=== PATIENT | female | born 1960 | race African-American/Black ===

== ENCOUNTER 2019-02-08 16:43 | Inpatient (IN) | payer MEDICAID ==
[~2019-02-08] VITALS: Ht 167.6 cm; Wt 52.6 kg
[~2019-02-08 16:43] MED LIST: AMLO2.5T45 PO; ATOR10TA PO; CARI350T27 *; LORA10TA7 PO; LOSA100T32 PO; PANT40TA4 PO; POTA20TA82 PO; PRAV20TA57 PO; [UNRECOGNIZED DRUG - CODE] PO
[2019-02-08] MEDS ORDERED: SODIUM CHLORIDE 0.9% 1000ML BAG (SEPSIS BOLUS) IV ONE (17:15)
[2019-02-08 17:44] LABS: BASOPHILS % 0.2 % (0.0-2.0); EOSINOPHILS % 0.6 % (0.0-5.0); HEMATOCRIT. 29.3 % (36.0-48.0); HEMOGLOBIN. 10.3 g/dL (12.0-16.0); LYMPHOCYTES % 18.3 % (20.0-50.0); MEAN CORPUSCULAR VOLUME 96.3 fL (81.0-99.0); MEAN PLATELET VOLUME 6.8 fl (7.4-10.4); MONOCYTES % 14.5 % (2.0-8.0); NEUTROPHILS % 66.4 % (40.0-76.0); PLATELET 295 x1000/uL (130-400); RED BLOOD CELL COUNT 3.04 mill/uL (4.2-5.4); RED CELL DISTRIBUTION WIDTH 14.1 % (11.6-14.6)
[2019-02-08 17:49] LABS: INR 1.1; PARTIAL THROMBOPLASTIN TIME 26.6 sec (23.4-31.0); PROTHROMBIN TIME 10.9 sec (9.6-11.0)
[2019-02-08 17:50] LABS: CHLORIDE 85 mEq/L (98-107)
[2019-02-08] MEDS ORDERED: KCL 20MEQ/100ML PREMIX 100 ML IV ONE (18:30)
[2019-02-08] MEDS ORDERED: LEVOFLOXACIN 750MG PREMIX 150 ML IV ONE (18:30)
[2019-02-08] MEDS ORDERED: POTASSIUM CHLORIDE 20MEQ TABLET SR PO ONE (18:30)
[2019-02-08] MEDS ORDERED: KCL 20MEQ/100ML PREMIX 100 ML IV NR (19:00)
[2019-02-08 19:11] LABS: CLARITY URINE CLEAR (CLEAR); COLOR URINE YELLOW (YELLOW); KETONES URINE NEGATIVE (NEGATIVE); LEUKOCYTE ESTERASE URINE TRACE (NEGATIVE); NITRITE URINE NEGATIVE (NEGATIVE); OCCULT BLOOD URINE TRACE (NEGATIVE); PROTEIN URINE NEGATIVE (NEGATIVE); SPECIFIC GRAVITY URINE 1.003 (1.005-1.030); UROBILINOGEN URINE 0.2 E.U./dL (0.2-1.0)
[2019-02-08] MEDS ORDERED: MAGNESIUM/ALUMINUM HYDROXIDE/SIMETHICONE 30ML UDC PO PRN (19:15)
[2019-02-08] MEDS ORDERED: IPRATROPIUM/ALBUTEROL 0.5-3(2.5)MG/3ML NEB HHN PRN (19:15)
[2019-02-08] MEDS ORDERED: ONDANSETRON HCL 4MG/2ML INJ IV PRN (19:15)
[2019-02-08] MEDS ORDERED: KETOROLAC 15MG/ML VIAL IV PRN (19:15)
[2019-02-08] MEDS ORDERED: ZOLPIDEM TARTRATE 5MG TABLET PO PRN (19:15)
[2019-02-08] MEDS ORDERED: ACETAMINOPHEN 325MG TABLET PO PRN (19:15)
[2019-02-08] MEDS ORDERED: DOCUSATE SODIUM 100MG CAPSULE PO PRN (19:15)
[2019-02-08] MEDS ORDERED: GUAIFENESIN 200MG/10ML SUGAR FREE UDC PO PRN (19:15)
[2019-02-08] MEDS ORDERED: CLONIDINE 0.1MG TABLET PO PRN (19:15)
[2019-02-08] MEDS ORDERED: NITROGLYCERIN 0.4MG TABLET SL SL PRN (19:15)
[2019-02-08] MEDS ORDERED: LORAZEPAM 0.5MG TABLET PO PRN (19:15)
[2019-02-08] MEDS ORDERED: LEVOFLOXACIN 500MG PREMIX 100 ML IV SCH (19:15)
[2019-02-08] MEDS ORDERED: DEXTROSE 50% WATER 50ML SYRINGE IV PRN (19:15)
[2019-02-08 19:37] LABS: T4 FREE 0.98 ng/dL (0.76-1.46)
[2019-02-08 19:43] LABS: ETHANOL BLOOD < 10 mg/dL
[2019-02-08 19:46] LABS: LDL CHOLESTEROL 78 mg/dL (5-100)
[2019-02-08 19:49] LABS: HDL CHOLESTEROL 63 mg/dL (40-59)
[2019-02-08] MEDS ORDERED: MAGNESIUM 2 G PREMIX 50 ML IV ONE (20:00)
[2019-02-08 20:05] LABS: *AMPHETAMINES SCREEN URINE NEGATIVE (NEGATIVE); *BARBITURATES SCREEN URINE NEGATIVE (NEGATIVE); *BENZODIAZEPINES SCREEN URINE NEGATIVE (NEGATIVE); *COCAINE SCREEN URINE NEGATIVE (NEGATIVE); CANNABINOID URINE SCREEN NEGATIVE (NEGATIVE); METHADONE URINE SCREEN NEGATIVE (NEGATIVE); OPIATES URINE SCREEN NEGATIVE (NEGATIVE); PHENCYCLIDINE URINE SCREEN NEGATIVE (NEGATIVE)
[2019-02-08 20:07] LABS: VITAMIN B12 SERUM 642 pg/mL (211-911)
[2019-02-08 20:11] LABS: FOLIC ACID (FOLATE) SERUM > 20.00 ng/mL (>5.38)
[2019-02-08 21:30] VITALS: BP 123/88
[2019-02-08 22:00] VITALS: BP 135/79
[2019-02-08] MEDS: INSULIN LISPRO 100 UNITS/ML SUBCUT SCH (23:00)
[2019-02-08] MEDS: SODIUM CHLORIDE 0.9% 1,000 ML IV SCH (23:12)
[2019-02-08] MEDS: BLOOD SUGAR DIAGNOSTIC STRIP TEST SCH (23:24)
[2019-02-08] MEDS ORDERED: MAGNESIUM 4 G PREMIX 100 ML IV SCH (23:30)
[2019-02-08] MEDS: ASCORBIC ACID 500 MG TABLET PO SCH (23:58)
[2019-02-09] VITALS (12 sets, daily range): BP systolic 95–151; BP diastolic 54–80
[2019-02-09 00:19] LABS: CREATINE KINASE 279 IU/L (26-192)
[2019-02-09 00:21] LABS: CREATINE KINASE MB FRACTION 2.7 ng/mL (0.5-3.6)
[2019-02-09] MEDS ORDERED: ASPI-1393 PO (02:58)
[2019-02-09] MEDS: BLOOD SUGAR DIAGNOSTIC STRIP TEST SCH ×4 (07:50→21:14)
[2019-02-09] MEDS ORDERED: PNEUMOCOCCAL 23-VAL P-SAC VAC 0.5 ML IM ONE (08:00)
[2019-02-09] MEDS: INSULIN LISPRO 100 UNITS/ML SUBCUT SCH ×4 (08:00→21:00)
[2019-02-09] MEDS: ZINC SULFATE 220 MG ( 50 ) CAPSULE PO SCH (08:48)
[2019-02-09] MEDS: CEFTRIAXONE 1 G PREMIX 50 ML IV SCH (08:48)
[2019-02-09] MEDS: ASCORBIC ACID 500 MG TABLET PO SCH ×2 (08:48→21:58)
[2019-02-09] MEDS: ASPIRIN 325MG EC TABLET PO SCH (08:48)
[2019-02-09 08:53] LABS: HEMATOCRIT. 29.7 % (36.0-48.0); HEMOGLOBIN. 10.2 g/dL (12.0-16.0); MEAN CORPUSCULAR HEMOGLOBIN 33.7 pg (28.0-32.0); MEAN CORPUSCULAR VOLUME 97.7 fL (81.0-99.0); MEAN PLATELET VOLUME 6.7 fl (7.4-10.4); PLATELET 294 x1000/uL (130-400); RED BLOOD CELL COUNT 3.04 mill/uL (4.2-5.4)
[2019-02-09] MEDS ORDERED: CEFTRIAXONE 1 G PREMIX 50 ML IV SCH (09:00)
[2019-02-09] MEDS: ENOXAPARIN 30MG/0.3ML SYR SUBCUT SCH (09:01)
[2019-02-09 09:05] LABS: CHLORIDE 101 mEq/L (98-107)
[2019-02-09 09:17] LABS: CREATINE KINASE 221 IU/L (26-192)
[2019-02-09 09:20] LABS: PLATELET ESTIMATE NORMAL
[2019-02-09] MEDS: SODIUM CHLORIDE 0.9% 1,000 ML IV SCH (12:25)
[2019-02-09] MEDS: THIAMINE HCL 100MG TABLET PO SCH (12:43)
[2019-02-09] MEDS: FOLIC ACID 1MG TABLET PO SCH (12:43)
[2019-02-09] MEDS: MULTIVITAMINS,THER W-MINERALS TABLET PO SCH (12:43)
[2019-02-09] MEDS: LEVOFLOXACIN 250MG PREMIX 50 ML IV SCH (18:23)
[2019-02-10] VITALS (9 sets, daily range): BP systolic 13–146; BP diastolic 45–85
[2019-02-10] MEDS: SODIUM CHLORIDE 0.9% 1,000 ML IV SCH ×2 (06:56→14:29)
[2019-02-10 06:58] LABS: BASOPHILS % 0.7 % (0.0-2.0); HEMATOCRIT. 24.9 % (36.0-48.0); HEMOGLOBIN. 8.7 g/dL (12.0-16.0); MEAN CORPUSCULAR HEMOGLOBIN 34.1 pg (28.0-32.0); MEAN CORPUSCULAR VOLUME 98.2 fL (81.0-99.0); MEAN PLATELET VOLUME 6.9 fl (7.4-10.4); MONOCYTES % 12.5 % (2.0-8.0); NEUTROPHILS % 48.8 % (40.0-76.0); PLATELET 278 x1000/uL (130-400); RED BLOOD CELL COUNT 2.54 mill/uL (4.2-5.4); RED CELL DISTRIBUTION WIDTH 14.3 % (11.6-14.6)
[2019-02-10 07:09] LABS: CHLORIDE 105 mEq/L (98-107)
[2019-02-10] MEDS: INSULIN LISPRO 100 UNITS/ML SUBCUT SCH ×2 (08:00→13:00)
[2019-02-10] MEDS: BLOOD SUGAR DIAGNOSTIC STRIP TEST SCH ×2 (08:14→13:11)
[2019-02-10] MEDS: ZINC SULFATE 220 MG ( 50 ) CAPSULE PO SCH (08:24)
[2019-02-10] MEDS: ASCORBIC ACID 500 MG TABLET PO SCH (08:24)
[2019-02-10] MEDS: ASPIRIN 325MG EC TABLET PO SCH (08:24)
[2019-02-10] MEDS: THIAMINE HCL 100MG TABLET PO SCH (08:24)
[2019-02-10] MEDS: CEFTRIAXONE 1 G PREMIX 50 ML IV SCH (08:24)
[2019-02-10] MEDS: FOLIC ACID 1MG TABLET PO SCH (08:24)
[2019-02-10] MEDS: MULTIVITAMINS,THER W-MINERALS TABLET PO SCH (08:24)
[2019-02-10] MEDS: ENOXAPARIN 30MG/0.3ML SYR SUBCUT SCH (08:25)
[2019-02-10] MEDS ORDERED: MAGNESIUM OXIDE 400MG TABLET PO SCH (10:00)
[2019-02-10] MEDS: LEVOFLOXACIN 250MG PREMIX 50 ML IV SCH (11:31)
[2019-02-10] MEDS ORDERED: FOLI-43 PO (15:33)
[2019-02-10] MEDS ORDERED: MULT-1116 PO (15:33)
[2019-02-10] MEDS ORDERED: THIA100T75 PO (15:35)
[2019-02-10] MEDS ORDERED: THIO100T PO (15:36)
[2019-02-10] MEDS ORDERED: LEVOFLOXACIN 250MG PREMIX 50 ML IV SCH (18:00)
[2019-02-11] MEDS ORDERED: ENOXAPARIN 40MG/0.4ML SYR SUBCUT SCH (09:00)
== END 2019-02-10 16:45 | disposition home or self-care (01) | DRG 720 ==
LOC: ER 16:43 → 5EST 18:49 → EDBEDREQ 19:02 → EDBEDREQTM 19:03 → EDBEDREQ 19:03 → ENRESERV 20:30
PROVIDERS: ADMIT Internal Medicine; ATTEND Internal Medicine
DX: A41.9 Sepsis, unspecified organism (principal); N17.0 Acute kidney failure with tubular necrosis; E83.42 Hypomagnesemia; E87.1 Hypo-osmolality and hyponatremia; N39.0 Urinary tract infection, site not specified; E83.51 Hypocalcemia; E87.6 Hypokalemia; E78.00 Pure hypercholesterolemia, unspecified; F10.21 Alcohol dependence, in remission; I10 Essential (primary) hypertension; F41.9 Anxiety disorder, unspecified
CPT/HCPCS: 36415; 71045; 80061; 80305; 80320; 81003; 82550; 82553; 82607; 82746; 82962; 83036; 83540; 83550; 83605; 83735; 84145; 84439; 84443; 84484; 93005; 93306; 93970; 99291; J0696; J1650; J1956; J3475; J3480; J7030; G0480

== ENCOUNTER 2019-04-05 12:21 | Emergency (ER) | payer MEDICAID ==
[~2019-04-05] VITALS: Ht 165.1 cm; Wt 70.0 kg
[~2019-04-05 12:21] MED LIST changes: +ASPI-1393 PO; +FOLI-43 PO; +MULT-1116 PO; +THIA100T75 PO; +THIO100T PO
[2019-04-05] MEDS ORDERED: LORAZEPAM 2MG/ML CPJ IV STA (13:00)
[2019-04-05] MEDS ORDERED: SODIUM CHLORIDE 0.9% 1,000 ML IV ONE (13:00)
[2019-04-05 13:37] LABS: BASOPHILS % 1.5 % (0.0-2.0); EOSINOPHILS % 0.6 % (0.0-5.0); HEMATOCRIT. 33.6 % (36.0-48.0); HEMOGLOBIN. 11.7 g/dL (12.0-16.0); LYMPHOCYTES % 23.4 % (20.0-50.0); MEAN CORPUSCULAR HEMOGLOBIN 33.5 pg (28.0-32.0); MEAN CORPUSCULAR VOLUME 96.2 fL (81.0-99.0); MEAN PLATELET VOLUME 6.9 fl (7.4-10.4); MONOCYTES % 7.5 % (2.0-8.0); PLATELET 586 x1000/uL (130-400); RED BLOOD CELL COUNT 3.49 mill/uL (4.2-5.4); RED CELL DISTRIBUTION WIDTH 14.4 % (11.6-14.6)
[2019-04-05 13:43] LABS: CHLORIDE 97 mEq/L (98-107)
[2019-04-05 13:45] LABS: PROTHROMBIN TIME 10.2 sec (9.6-11.0)
[2019-04-05 13:47] LABS: ETHANOL BLOOD < 10 mg/dL
[2019-04-05 13:54] LABS: CREATINE KINASE 76 IU/L (26-192)
[2019-04-05] MEDS ORDERED: PIPERACILLIN/TAZ 3.375G PREMIX 50 ML IV ONE (14:15)
[2019-04-05] MEDS ORDERED: SODIUM CHLORIDE 0.9% 1000ML BAG (SEPSIS BOLUS) IV ONE (14:15)
[2019-04-05 15:20] LABS: CLARITY URINE CLEAR (CLEAR); COLOR URINE YELLOW (YELLOW); KETONES URINE NEGATIVE (NEGATIVE); LEUKOCYTE ESTERASE URINE NEGATIVE (NEGATIVE); NITRITE URINE NEGATIVE (NEGATIVE); OCCULT BLOOD URINE 2+ (NEGATIVE); PROTEIN URINE NEGATIVE (NEGATIVE); UROBILINOGEN URINE 0.2 E.U./dL (0.2-1.0)
[2019-04-05 15:40] VITALS: BP 112/71
[2019-04-05 15:56] LABS: METHADONE URINE SCREEN NEGATIVE (NEGATIVE); OPIATES URINE SCREEN NEGATIVE (NEGATIVE); PHENCYCLIDINE URINE SCREEN NEGATIVE (NEGATIVE)
[2019-04-05 15:57] LABS: *AMPHETAMINES SCREEN URINE NEGATIVE (NEGATIVE); *BARBITURATES SCREEN URINE NEGATIVE (NEGATIVE); *BENZODIAZEPINES SCREEN URINE NEGATIVE (NEGATIVE); *COCAINE SCREEN URINE NEGATIVE (NEGATIVE); CANNABINOID URINE SCREEN NEGATIVE (NEGATIVE)
[2019-04-05] MEDS ORDERED: LORAZEPAM 2MG/ML CPJ IV PRN (16:30)
[2019-04-05] MEDS ORDERED: THIAMINE HCL 100MG TABLET PO SCH (16:30)
[2019-04-05] MEDS ORDERED: FOLIC ACID 1MG TABLET PO SCH (16:30)
[2019-04-05] MEDS ORDERED: PIPERACILLIN/TAZOBACTAM 3.375 G in DEXT 5% WATER 100 ML IV SCH (16:30)
[2019-04-05] MEDS ORDERED: MULTIVITAMINS,THER W-MINERALS TABLET PO SCH (16:30)
[2019-04-05] MEDS ORDERED: CHLORDIAZEPOXIDE 25MG CAPSULE PO SCH (22:00)
[2019-04-07] MEDS ORDERED: AMLO10TA80 MT (21:22)
[2019-04-10] MEDS ORDERED: FOLI-43 PO (09:45)
[2019-04-10] MEDS ORDERED: CYAN-50 PO (09:45)
[2019-04-10] MEDS ORDERED: THIA100T72 PO (09:45)
== END 2019-04-05 16:03 | disposition left against medical advice (07) ==
LOC: ER 12:38 → EDBEDREQTM 15:35 → EDBEDREQ 15:35 → ER 16:03 → CANBEDREQ 16:29
DX: R65.20 Severe sepsis without septic shock (principal); G93.41 Metabolic encephalopathy; I10 Essential (primary) hypertension; E78.00 Pure hypercholesterolemia, unspecified; D64.9 Anemia, unspecified; F10.20 Alcohol dependence, uncomplicated; Z79.82 Long term (current) use of aspirin; Z79.899 Other long term (current) drug therapy; Y90.0 Blood alcohol level of less than 20 mg/100 ml
CPT/HCPCS: 36415; 70450; 71045; 80053; 80305; 80320; 81003; 82140; 82550; 83605; 84145; 84484; 85025; 85610; 87040; 87086; 93005; 96361; 96374; 99291; J2060; J7030; G0480

== ENCOUNTER 2019-07-20 12:31 | Inpatient (IN) | payer MEDICAID ==
[~2019-07-20] VITALS: Ht 149.9 cm; Wt 55.3 kg
[~2019-07-20 12:31] MED LIST changes: +ACET-2708 PO; +AMLO10TA80 PO; -AMLO2.5T45 PO; -ASPI-1393 PO; -ATOR10TA PO; -CARI350T27 *; -FOLI-43 PO; -LOSA100T32 PO; +LOSA1TAB40 PO; -MULT-1116 PO; -POTA20TA82 PO; -THIA100T75 PO; -THIO100T PO; +[UNRECOGNIZED DRUG - CODE] PO; -[UNRECOGNIZED DRUG - CODE] PO
[2019-07-20] MEDS ORDERED: SODIUM CHLORIDE 0.9% 1,000 ML IV ONE (13:02)
[2019-07-20] MEDS ORDERED: MORPHINE SULFATE 4 MG/ML CPJ (NOT FOR IM USE) IV STA (13:02)
[2019-07-20] MEDS ORDERED: FAMOTIDINE 20MG/2ML VIAL IV STA (13:02)
[2019-07-20] MEDS ORDERED: ONDANSETRON HCL 4MG/2ML INJ IV STA (13:02)
[2019-07-20 13:15] LABS: CLARITY URINE CLOUDY (CLEAR); COLOR URINE DARK YELLOW (YELLOW); KETONES URINE NEGATIVE (NEGATIVE); LEUKOCYTE ESTERASE URINE TRACE (NEGATIVE); NITRITE URINE NEGATIVE (NEGATIVE); OCCULT BLOOD URINE NEGATIVE (NEGATIVE); PROTEIN URINE 1+ (NEGATIVE); SPECIFIC GRAVITY URINE 1.018 (1.005-1.030); UROBILINOGEN URINE 0.2 E.U./dL (0.2-1.0)
[2019-07-20] MEDS ORDERED: HYDROCODONE/ACETAMINOPHEN 5/325MG TABLET PO ONE (13:30)
[2019-07-20] MEDS ORDERED: ONDANSETRON 4MG ODT PO ONE (13:45)
[2019-07-20 14:08] LABS: CHLORIDE 94 mEq/L (98-107)
[2019-07-20] MEDS ORDERED: SODIUM CHLORIDE 0.9% 1000ML BAG (SEPSIS BOLUS) IV ONE (14:30)
[2019-07-20] MEDS ORDERED: PIPERACILLIN/TAZ 3.375G PREMIX 50 ML IV ONE (14:30)
[2019-07-20 15:48] LABS: BASOPHILS % 0.8 % (0.0-2.0); HEMATOCRIT. 39.4 % (36.0-48.0); HEMOGLOBIN. 13.5 g/dL (12.0-16.0); LYMPHOCYTES % 22.8 % (20.0-50.0); MEAN CORPUSCULAR HEMOGLOBIN 32.3 pg (28.0-32.0); MEAN CORPUSCULAR VOLUME 94.3 fL (81.0-99.0); MEAN PLATELET VOLUME 7.8 fl (7.4-10.4); MONOCYTES % 10.4 % (2.0-8.0); PLATELET 399 x1000/uL (130-400); RED BLOOD CELL COUNT 4.18 mill/uL (4.2-5.4); RED CELL DISTRIBUTION WIDTH 14.3 % (11.6-14.6)
[2019-07-20 16:50] LABS: PROTHROMBIN TIME 11.2 sec (9.6-11.0)
[2019-07-20] MEDS ORDERED: ONDANSETRON HCL 4MG/2ML INJ IV PRN (18:00)
[2019-07-20] MEDS ORDERED: DIPHENHYDRAMINE 50MG/ML VIAL IV PRN (18:00)
[2019-07-20] MEDS ORDERED: IPRATROPIUM/ALBUTEROL 0.5-3(2.5)MG/3ML NEB HHN PRN (18:00)
[2019-07-20] MEDS ORDERED: ACETAMINOPHEN 325MG TABLET PO PRN (18:00)
[2019-07-20] MEDS ORDERED: CLONIDINE 0.1MG TABLET PO PRN (18:00)
[2019-07-20] MEDS ORDERED: IOHEXOL-300 100 ML BOTTLE ONE (18:40)
[2019-07-20] MEDS ORDERED: MORPHINE SULFATE 2 MG/ML CPJ (NOT FOR IM USE) IV PRN (20:42)
[2019-07-20 21:15] VITALS: BP 135/76
[2019-07-20] MEDS: INSULIN LISPRO 100 UNITS/ML SUBCUT SCH (22:22)
[2019-07-20] MEDS ORDERED: DEXTROSE 50% WATER 50ML SYRINGE IV PRN (22:22)
[2019-07-20 22:30] VITALS: BP 135/76
[2019-07-20] MEDS: BLOOD SUGAR DIAGNOSTIC STRIP TEST SCH (22:38)
[2019-07-20] MEDS ORDERED: ASPI-1497 PO (23:00)
[2019-07-21] VITALS: BP 145/70
[2019-07-21 04:00] VITALS: BP 112/67
[2019-07-21] MEDS: INSULIN LISPRO 100 UNITS/ML SUBCUT SCH ×2 (06:00→11:35)
[2019-07-21] MEDS: BLOOD SUGAR DIAGNOSTIC STRIP TEST SCH ×2 (06:00→11:35)
[2019-07-21 08:00] VITALS: BP 110/59
[2019-07-21] MEDS ORDERED: ENOXAPARIN 40MG/0.4ML SYR SUBCUT SCH (09:00)
[2019-07-21 12:00] VITALS: BP 143/51
[2019-07-21 15:54] VITALS: BP_SYST 130; BP_SYST 96; BP_DIAS 50; BP_DIAS 69
[2019-10-28] MEDS ORDERED: RISP1 MT (10:32)
== END 2019-07-21 16:30 | disposition home or self-care (01) | DRG 249 ==
LOC: ER 12:31 → 5WST 17:02 → EDBEDREQ 17:11 → ENRESERV 20:36
PROVIDERS: ADMIT Internal Medicine; ATTEND Internal Medicine
DX: A08.4 Viral intestinal infection, unspecified (principal); E87.2 Acidosis; E78.00 Pure hypercholesterolemia, unspecified; E78.5 Hyperlipidemia, unspecified; E87.6 Hypokalemia; I10 Essential (primary) hypertension; Z87.891 Personal history of nicotine dependence; Z79.899 Other long term (current) drug therapy; Z79.82 Long term (current) use of aspirin
CPT/HCPCS: 36415; 71045; 74177; 76700; 80053; 81003; 82962; 83605; 83735; 84100; 84484; 85025; 93005; 93970; 99291; J1650; J2270; J2405; J2543; J3490; J7030; Q0162; Q9967

== ENCOUNTER 2019-11-05 11:26 | Emergency (ER) | payer MEDICAID ==
[~2019-11-05] VITALS: Ht 167.6 cm; Wt 63.0 kg
[~2019-11-05 11:26] MED LIST changes: +ASPI-1497 PO; +RISP1 MT
[2019-11-05 12:56] LABS: CLARITY URINE CLOUDY (CLEAR); COLOR URINE YELLOW (YELLOW); KETONES URINE TRACE (NEGATIVE); LEUKOCYTE ESTERASE URINE 2+ (NEGATIVE); NITRITE URINE NEGATIVE (NEGATIVE); OCCULT BLOOD URINE NEGATIVE (NEGATIVE); PROTEIN URINE TRACE (NEGATIVE); SPECIFIC GRAVITY URINE 1.017 (1.005-1.030)
[2019-11-05 13:09] LABS: BASOPHILS % 0.8 % (0.0-2.0); EOSINOPHILS % 0.5 % (0.0-5.0); HEMATOCRIT. 31.4 % (36.0-48.0); HEMOGLOBIN. 10.7 g/dL (12.0-16.0); LYMPHOCYTES % 18.4 % (20.0-50.0); MEAN CORPUSCULAR HEMOGLOBIN 33.5 pg (28.0-32.0); MEAN CORPUSCULAR VOLUME 98.6 fL (81.0-99.0); MEAN PLATELET VOLUME 7.3 fl (7.4-10.4); MONOCYTES % 8.7 % (2.0-8.0); NEUTROPHILS % 71.6 % (40.0-76.0); PLATELET 526 x1000/uL (130-400); RED BLOOD CELL COUNT 3.19 mill/uL (4.2-5.4); RED CELL DISTRIBUTION WIDTH 13.7 % (11.6-14.6)
[2019-11-05 13:12] LABS: CHLORIDE 103 mEq/L (98-107)
[2019-11-05 13:18] LABS: *AMPHETAMINES SCREEN URINE NEGATIVE (NEGATIVE)
[2019-11-05 13:19] LABS: *BARBITURATES SCREEN URINE NEGATIVE (NEGATIVE); *BENZODIAZEPINES SCREEN URINE NEGATIVE (NEGATIVE); *COCAINE SCREEN URINE NEGATIVE (NEGATIVE); METHADONE URINE SCREEN NEGATIVE (NEGATIVE); OPIATES URINE SCREEN NEGATIVE (NEGATIVE)
[2019-11-05 13:19] LABS: ETHANOL BLOOD < 10 mg/dL
[2019-11-05 13:20] LABS: CANNABINOID URINE SCREEN NEGATIVE (NEGATIVE); PHENCYCLIDINE URINE SCREEN NEGATIVE (NEGATIVE)
[2019-11-05 15:41] VITALS: BP 112/70
[2019-11-05] MEDS ORDERED: NITROFURANTOIN 100MG M/M CAPSULE PO ONE (18:00)
== END 2019-11-05 18:13 | disposition home or self-care (01) ==
LOC: ER 11:41
DX: F41.9 Anxiety disorder, unspecified (principal); F23 Brief psychotic disorder; N39.0 Urinary tract infection, site not specified; R80.9 Proteinuria, unspecified; R82.4 Acetonuria; R82.71 Bacteriuria; N17.0 Acute kidney failure with tubular necrosis; D64.9 Anemia, unspecified; I10 Essential (primary) hypertension; E78.00 Pure hypercholesterolemia, unspecified; Z79.82 Long term (current) use of aspirin; Z79.899 Other long term (current) drug therapy
CPT/HCPCS: 36415; 80053; 80305; 80320; 81003; 85025; 99283; G0480

== ENCOUNTER 2025-02-01 10:45 | Emergency (ER) | payer OTHER, MEDICARE, MEDICAID ==
[~2025-02-01] VITALS: Ht 149.9 cm; Wt 56.0 kg
[~2025-02-01 10:45] MED LIST changes: -AMLO10TA80 PO; -ASPI-1497 PO; +FOLI-43 PO; -LORA10TA7 PO; -LOSA1TAB40 PO; -PANT40TA4 PO; +PANT40TA51 PO; -PRAV20TA57 PO; -RISP1 MT; +TOPUD PO; -[UNRECOGNIZED DRUG - CODE] PO
[2025-02-01 11:00] VITALS: O2SAT 99
[2025-02-01] MEDS: CYCLOBENZAPRINE 10MG TABLET PO ONE (11:46)
[2025-02-01] MEDS ORDERED: CYCL10TA21 MT (11:53)
[2025-02-01 12:05] VITALS: BP 164/84; PULSE 75; RESP 18; TEMP 36.9; O2SAT 99
== END 2025-02-01 12:05 | disposition home or self-care (01) ==
LOC: ER 10:45
DX: M25.461 Effusion, right knee (principal); E78.00 Pure hypercholesterolemia, unspecified; F20.9 Schizophrenia, unspecified; I10 Essential (primary) hypertension; Z79.899 Other long term (current) drug therapy; Z88.5 Allergy status to narcotic agent; V49.9XXA Car occupant (driver) (passenger) injured in unspecified traffic accident, initial encounter; Y93.89 Activity, other specified; Y92.410 Unspecified street and highway as the place of occurrence of the external cause; Y99.8 Other external cause status
CPT/HCPCS: 73560; 99283